=== PATIENT | female | born 1955 | race Caucasian/White ===

== ENCOUNTER 2021-06-29 23:30 | Emergency (ER) | payer MEDICAID | END 2021-06-29 23:50 | disposition left against medical advice (07) | LOC: JP.ED 23:30 | DX: R06.02 Shortness of breath (principal); Z53.21 Procedure and treatment not carried out due to patient leaving prior to being seen by health care provider ==

== ENCOUNTER 2021-07-01 19:12 | Emergency (ER) | payer MEDICAID ==
[2021-07-01] MEDS ORDERED: Sodium Chloride 0.9% 10 ML Syringe FLUSH PRN (19:21)
[2021-07-01] MEDS ORDERED: Albuterol/Ipratropium 3.0-0.5 MG/3 ML Neb Soln NEB ONE (19:25)
--- NOTE | 2021-07-01 19:31 | EDM.PDOC ---
ED HPI GENERAL MEDICAL PROBLEM - General Chief Complaint: Respiratory Problem Stated Complaint: SOB Time Seen by Provider: 07/01/21 19:19 Source of Information: Reports: Patient History Limitations: Reports: No Limitations - History of Present Illness INITIAL COMMENTS - FREE TEXT/NARRATIVE: Patient presents to the ER today due to continued episodes of SOB/difficulty breathing. Patient states that increased shortness of breath has been going on for approximately 3 days. She states she came to the ER the other day but left as apparently it was busy and she did not want to wait. She states that episodes are intermittent in nature she does not describe any other compounding factors denies any chest pain fevers chills nausea vomiting lightheaded or dizziness. Patient does report that she is a smoker and has smoked for many many years currently she is only smoking about 4 to 5 cigarettes a day. PMH/Meds--denies (she does not go to doctor) NKDA Tob--currently 4-5 cig/day EtOH--2 ounces vodka (states she had some today) Drugs--denies Denies having had COVID infection history, has not received her COVID or influenza vaccination Onset: Other (intermittent episodes x 3 days) - Related Data Allergies Allergy/AdvReac Type Severity Reaction Status Date / Time No Known Allergies Allergy Verified 07/01/21 19:33 Home Meds: Home Meds Dextroamphetamine/Amphetamine [Adderall 12.5 mg Tablet] 50 mg PO DAILY 07/01/21 [History] [place] Carbonate [Eskalith CR] 450 mg PO DAILY 07/01/21 [History] Social & Family History - Tobacco Use Tobacco Use Status *Q: Current Every Day Tobacco User Years of Tobacco use: 50 Packs/Tins Daily: 0.5 - Caffeine Use Caffeine Use: Reports: Coffee - Alcohol Use Days Per Week of Alcohol Use: 2 Number of Drinks Per Day: 3 Total Drinks Per Week: 6 - Recreational Drug Use Recreational Drug Use: No ED ROS GENERAL - Review of Systems Review Of Systems: Comprehensive ROS is negative, except as noted in HPI. Constitutional: Reports: No Symptoms. Denies: Fever, Chills, Weakness, Fatigue, Decreased Appetite HEENT: Reports: No Symptoms Respiratory: Reports: Shortness of Breath Cardiovascular: Denies: No Symptoms, Chest Pain, Edema, Palpitations GI/Abdominal: Reports: No Symptoms. Denies: Nausea, Vomiting ED EXAM, GENERAL - Physical Exam Exam: See Below Exam Limited By: No Limitations General Appearance: Alert, Moderate Distress (respiratory--tachypnea/sob), Thin, Other (thin frail appearing female, appears older than stated age) Eye Exam: Bilateral Eye: EOMI, Normal Inspection, PERRL Ears: Normal External Exam Nose: Normal Inspection Throat/Mouth: Normal Inspection, Normal Oropharynx, Normal Voice, No Airway Compromise Head: Atraumatic, Normocephalic Neck: Normal Inspection, Supple, Non-Tender, Full Range of Motion Respiratory/Chest: Respiratory Distress (moderate tachypnea (RR 30's), conversation is somewhat interrupted but she is able to discuss symtoms/HPI, no wheeze/rhonchi/crackles, + accessary muscle use-wants to sit upright), Accessory Muscle Use. No: Crackles, Rales, Rhonchi, Wheezing Cardiovascular: Normal Peripheral Pulses, No Murmur, Tachycardia Peripheral Pulses: 2+: Radial (L), Radial (R) GI/Abdominal: Normal Bowel Sounds, Soft, Non-Tender (Female) Exam: Deferred Rectal (Female) Exam: Deferred Back Exam: Normal Inspection, Full Range of Motion Extremities: Normal Inspection, Normal Range of Motion, No Pedal Edema Neurological: Alert, Oriented, CN II-XII Intact, Normal Cognition, No Motor/Sensory Deficits Psychiatric: Normal Affect, Normal Mood Skin Exam: Warm, Dry, Intact, Normal Color (cap refill is slightly delayed 2-3 seconds) #1 Interpretation EKG Date: 07/01/21 Time: 19:58 (Patient at 1958 there is no STEMI noted) Rhythm: NSR Rate (Beats/Min): 102 [place]: Normal P-Wave: Present (HI interval 173) QRS: Normal (QRS 94) ST-T: Normal QT: Normal (QT/EUx650/447) Comparison: NA - No Prior EKG (Noted for sinus tachycardia otherwise no acute changes are noted) Course - Vital Signs Text/Narrative:: 2009--in room to check on patient, she is feeling improved and noted to have decreased tachypnea and more conversationally intact. d/w patient COPD exace rbation as she responded well after duoneb & significant tobacco use/abuse history & still current smoker. 2025--[employer] d/w physician that patient with noted increased anxiety with any interaction. patient does not normally go to the doctor per her report Last Recorded V/S: Last Vital Signs Temp 95.9 F L 07/01/21 19:15 Pulse 101 H 07/01/21 21:09 Resp 23 H 07/01/21 21:09 BP 97/62 07/01/21 21:09 Pulse Ox 98 07/01/21 21:09 - Orders/Labs/Meds Orders: Active Orders 24 hr Category Date Time Status Peripheral IV Care [RC] . DIRECTED Care 07/01/21 19:23 Active Pulse Oximetry [RC] CONTINUOUS Care 07/01/21 19:22 Active RT Aerosol Therapy [RC] ASDIRECTED Care 07/01/21 19:25 Active Chest 1V Frontal [CR] Urgent Exams 07/01/21 19:21 Taken Sodium Chloride 0.9% [Saline Flush] Med 07/01/21 19:21 Active 10 ml FLUSH ASDIRECTED PRN ED Respiratory Adult Reflex [OM.PC] Click to Edit Oth 07/01/21 19:21 Ordered Isolation [COMM] Stat Oth 07/01/21 19:25 Ordered Peripheral IV Insertion Adult [OM.PC] Urgent Oth 07/01/21 19:21 Ordered EKG 12 Lead [EK] Urgent Ther 07/01/21 19:21 Ordered Medication Orders Sodium Chloride (Sodium Chloride 0.9% 10 Ml Syringe) 10 ml FLUSH ASDIRECTED PRN PRN Reason: Keep Vein Open Last Admin: 07/01/21 19:51 Dose: 10 ml Documented by: FRANKY Labs: Laboratory Tests 07/01/21 07/01/21 07/01/21 Range/Units 19:40 19:40 19:40 WBC 7.2 (4.5-11.0) K/uL RBC 4.96 (3.30-5.50) M/uL Hgb 14.3 (12.0-15.0) g/dL Hct 44.7 (36.0-48.0) % MCV 90 (80-98) fL MCH 29 (27-31) pg MCHC 32 (32-36) % Plt Count 277 (150-400) K/uL Neut % (Auto) 53.4 (36-66) % Lymph % (Auto) 31.8 (24-44) % Holmes % (Auto) 12.2 H (2-6) % Eos % (Auto) 1.9 L (2-4) % Baso % (Auto) 0.7 (0-1) % PT 10.6 (9.2-10.6) sec INR 1.0 APTT 22.7 (21.4-31.8) sec Sodium 140 (140-148) mmol/L Potassium 3.4 L (3.6-5.2) mmol/L Chloride 102 (100-108) mmol/L Carbon Dioxide 29 (21-32) mmol/L Anion Gap 12.4 (5.0-14.0) mmol/L BUN 15 (7-18) mg/dL Creatinine 0.8 (0.6-1.0) mg/dL Est Cr Clr Drug Dosing 52.57 mL/min Estimated GFR (MDRD) > 60 (>60) Glucose 88 (74-106) mg/dL Calcium 8.4 L (8.5-10.1) mg/dL Magnesium 2.3 (1.8-2.4) mg/dL Total Bilirubin 0.1 L (0.2-1.0) mg/dL AST 13 L (15-37) U/L ALT 18 (12-78) U/L Alkaline Phosphatase 82 (46-116) U/L Troponin I < 0.017 (0.000-0.056) ng/mL Total Protein 7.0 (6.4-8.2) g/dL Albumin 3.4 (3.4-5.0) g/dL Globulin 3.6 H (2.3-3.5) g/dL Albumin/Globulin Ratio 0.9 L (1.2-2.2) Influenza Type A RNA (NEGATIVE) RSV RNA (INAAT) (NEGATIVE) Influenza Type B RNA (NEGATIVE) SARS-CoV-2 RNA (BRIANA) (NEGATIVE) 07/01/21 Range/Units 19:40 WBC (4.5-11.0) K/uL RBC (3.30-5.50) M/uL Hgb (12.0-15.0) g/dL Hct (36.0-48.0) % MCV (80-98) fL MCH (27-31) pg MCHC (32-36) % Plt Count (150-400) K/uL Neut % (Auto) (36-66) % Lymph % (Auto) (24-44) % Holmes % (Auto) (2-6) % Eos % (Auto) (2-4) % Baso % (Auto) (0-1) % PT (9.2-10.6) sec INR APTT (21.4-31.8) sec Sodium (140-148) mmol/L Potassium (3.6-5.2) mmol/L Chloride (100-108) mmol/L Carbon Dioxide (21-32) mmol/L Anion Gap (5.0-14.0) mmol/L BUN (7-18) mg/dL Creatinine (0.6-1.0) mg/dL Est Cr Clr Drug Dosing mL/min Estimated GFR (MDRD) (>60) Glucose (74-106) mg/dL Calcium (8.5-10.1) mg/dL Magnesium (1.8-2.4) mg/dL Total Bilirubin (0.2-1.0) mg/dL AST (15-37) U/L ALT (12-78) U/L Alkaline Phosphatase (46-116) U/L Troponin I (0.000-0.056) ng/mL Total Protein (6.4-8.2) g/dL Albumin (3.4-5.0) g/dL Globulin (2.3-3.5) g/dL Albumin/Globulin Ratio (1.2-2.2) Influenza Type A RNA Negative (NEGATIVE) RSV RNA (INAAT) Negative (NEGATIVE) Influenza Type B RNA Negative (NEGATIVE) SARS-CoV-2 RNA (BRIANA) Negative (NEGATIVE) labs reviewed, noted for normal WBC, normal troponin, and mild hypokalemia Laboratory Tests 07/01/21 07/01/21 19:40 19:40 WBC 7.2 Neut % (Auto) 53.4 Potassium 3.4 L Creatinine 0.8 Troponin I < 0.017 Laboratory Tests 07/01/21 19:40 Influenza Type A RNA Negative RSV RNA (INAAT) Negative Influenza Type B RNA Negative SARS-CoV-2 RNA (BRIANA) Negative Meds: Medications Generic Name Dose Route Start Last Admin Trade Name Freq PRN Reason Stop Dose Admin Sodium Chloride 10 ml 07/01/21 19:21 07/01/21 19:51 Sodium Chloride 0.9% 10 Ml Syringe FLUSH 10 ml ASDIRECTED PRN Administration Keep Vein Open Discontinued Medications Generic Name Dose Route Start Last Admin Trade Name Katharine PRN Reason Stop Dose Admin Albuterol/Ipratropium 3 ml 07/01/21 19:25 07/01/21 19:40 Albuterol/Ipratropium 3.0-0.5 Mg/3 Ml Neb Soln NEB 07/01/21 19:26 3 ml ONETIME ONE Administration Ceftriaxone Sodium 1 gm/ 50 mls @ 100 mls/hr 07/01/21 20:31 07/01/21 20:47 Sodium Chloride IV 07/01/21 21:00 100 mls/hr ONETIME ONE Administration Lorazepam 0.5 mg 07/01/21 20:29 07/01/21 20:46 Lorazepam 0.5 Mg Tab PO 07/01/21 20:30 0.5 mg ONETIME ONE Administration Methylprednisolone Sodium Succinate 80 mg 07/01/21 20:32 07/01/21 20:47 Methylprednisolone Sodium Succinate 40 Mg/1 Ml Sdv IVPUSH 07/01/21 20:33 80 mg ONETIME ONE Administration - Radiology Interpretation Free Text/Narrative:: 2023--XR 1V (preliminary)--mild increased markings in right lower lobe suggestive of early infiltrate; final radiology reading pending Departure - Departure Time of Disposition: 21:30 Disposition: Home, Self-Care 01 Clinical Impression: COPD (chronic obstructive pulmonary disease), Tobacco abuse, Community acquired pneumonia, Hypokalemia - Discharge Information *PRESCRIPTION DRUG MONITORING PROGRAM REVIEWED*: Not Applicable *COPY OF PRESCRIPTION DRUG MONITORING REPORT IN PATIENT SAPNA: Not Applicable Instructions: Steps to Quit Smoking, [id number], Managing the Challenge of Quitting Smoking, Chronic Obstructive Pulmonary Disease, [id number], Metered Dose Inhaler (No Spacer Used), Eating Plan for Chronic Obstructive Pulmonary Disease, Community-Acquired Pneumonia, Adult, [id number] Referrals: PCP,None [Primary Care Provider] - Forms: ED Department Discharge Additional Instructions: It is important to ensure that you are drinking plenty of fluidswater, juice, sports drinks of choice to stay well-hydrated. If you have decreased appetite other options include soups. When you are feeling better your appetite should return I have provided you with a prescription for antibiotics for an early right lower lobe pneumonia. Have also provided you with an inhaler this is to help with your shortness of breath. You can use 2 puffs every 4-6 hours as needed for shortness of breath cough or any wheezing. It is recommended that you consider smoking cessation you are almost there at only 4 to 5 cigarettes a day. Cannot change the damage that has already been done but it can decrease continued damage done to your lungs related to cigarette smoke exposure. It is strongly recommended that you follow-up with the clinic in the next 3 to 5 days for repeat evaluation and further chronic medical care for your COPD/emphysema Sepsis Event Note (ED) - Focused Exam Vital Signs: Vital Signs Temp Pulse Resp BP Pulse Ox 07/01/21 21:09 101 H 23 H 97/62 98 07/01/21 20:39 101 H 29 H 107/68 95 07/01/21 20:13 109 H 105/66 94 L 07/01/21 19:15 95.9 F L 107 H 29 H 101/65 91 L - My Orders Last 24 Hours: My Active Orders 07/01/21 19:21 Chest 1V Frontal [CR] Urgent Sodium Chloride 0.9% [Saline Flush] 10 ml FLUSH ASDIRECTED PRN ED Respiratory Adult Reflex [OM.PC] Click to Edit Peripheral IV Insertion Adult [OM.PC] Urgent EKG 12 Lead [EK] Urgent 07/01/21 19:22 Pulse Oximetry [RC] CONTINUOUS 07/01/21 19:23 Peripheral IV Care [RC] . DIRECTED 07/01/21 19:25 RT Aerosol Therapy [RC] ASDIRECTED Isolation [COMM] Stat - Assessment/Plan Last 24 Hours: My Active Orders 07/01/21 19:21 Chest 1V Frontal [CR] Urgent Sodium Chloride 0.9% [Saline Flush] 10 ml FLUSH ASDIRECTED PRN ED Respiratory Adult Reflex [OM.PC] Click to Edit Peripheral IV Insertion Adult [OM.PC] Urgent EKG 12 Lead [EK] Urgent 07/01/21 19:22 Pulse Oximetry [RC] CONTINUOUS 07/01/21 19:23 Peripheral IV Care [RC] . DIRECTED 07/01/21 19:25 RT Aerosol Therapy [RC] ASDIRECTED Isolation [COMM] Stat
[2021-07-01] MEDS ORDERED: LORazepam 0.5 MG Tab PO ONE (20:29)
[2021-07-01] MEDS ORDERED: cefTRIAXone 1 GM in Sodium Chloride 0.9% 50 ML IV ONE (20:31)
[2021-07-01] MEDS ORDERED: methylPREDNISolone Sodium Succinate 40 MG/1 ML SDV IVPUSH ONE (20:32)
[2021-07-01 20:33] LABS: CORONAVIRUS COVID-19 NAA NEGATIVE (NEGATIVE)
[2021-07-01] MEDS ORDERED: Albuterol/Ipratropium 4 GM Inhalation Spray INH PRN ×2 (21:51→21:55)
--- NOTE | 2021-07-02 08:47 | CR ---
CHEST: Portable 07/01/2021 at 8:19 PM CLINICAL HISTORY:SOB COMPARISON:None FINDINGS: The heart size, pulmonary vascularity and hilar structures are normal. No infiltrate effusion or pneumothorax is seen. Lungs appear hyperaerated IMPRESSION: No acute cardiopulmonary process. Hyperaeration
== END 2021-07-01 21:45 | disposition home or self-care (01) ==
LOC: JP.ED 19:12
DX: J44.9 Chronic obstructive pulmonary disease, unspecified (principal); J18.9 Pneumonia, unspecified organism; E87.6 Hypokalemia; F17.210 Nicotine dependence, cigarettes, uncomplicated; Z20.822 Contact with and (suspected) exposure to COVID-19
CPT/HCPCS: 0241U; 36415; 71045; 80053; 83735; 84484; 85025; 85610; 85730; 93005; 94640; 96365; 96375; 99285; A9270; J0696; J2920; J7620-GY

== ENCOUNTER 2022-04-14 17:02 | Emergency (ER) | payer MEDICAID | END 2022-04-14 18:10 | disposition home or self-care (01) | LOC: JP.ED 17:02 | DX: R41.0 Disorientation, unspecified (principal); J44.9 Chronic obstructive pulmonary disease, unspecified; F10.920 Alcohol use, unspecified with intoxication, uncomplicated; F17.210 Nicotine dependence, cigarettes, uncomplicated; Z79.899 Other long term (current) drug therapy | CPT/HCPCS: 36415; 80307; 99284 ==

== ENCOUNTER 2023-01-30 18:18 | Emergency (ER) | payer MEDICARE, MEDICAID | END 2023-01-30 19:00 | disposition home or self-care (01) | LOC: JP.ED 18:18 | DX: F10.920 Alcohol use, unspecified with intoxication, uncomplicated (principal); J44.9 Chronic obstructive pulmonary disease, unspecified | CPT/HCPCS: 36415; 80307; 99284 ==

== ENCOUNTER 2023-02-25 17:59 | Emergency (ER) | payer MEDICARE, MEDICAID | END 2023-02-25 18:05 | disposition left against medical advice (07) | LOC: JP.ED 17:59 | DX: Z53.21 Procedure and treatment not carried out due to patient leaving prior to being seen by health care provider (principal) ==

== ENCOUNTER 2025-02-11 19:36 | Emergency (ER) | payer MEDICARE, MEDICAID | END 2025-02-11 20:05 | disposition left against medical advice (07) | LOC: JP.ED 19:36 | DX: Z53.21 Procedure and treatment not carried out due to patient leaving prior to being seen by health care provider (principal) ==